=== PATIENT | female | born 1985 | race Caucasian/White ===

== ENCOUNTER 2018-08-20 22:54 | Emergency (ER) | payer OTHER ==
[2018-08-21 02:04] LABS: ADD MAN DIFF? NO
[2018-08-21 02:05] LABS: BASOPHILS % 0.3 % (0.0-2.0); EOSINOPHILS # 0.1 10^3/ul (0.0-0.5); EOSINOPHILS % 1.6 % (0.0-7.0); HEMATOCRIT 36.9 % (37.0-47.0); HEMOGLOBIN 12.2 g/dl (12.0-16.0); LYMPHOCYTES # 1.8 10^3/ul (0.8-2.9); MEAN CORPUSCULAR HGB CONC 33.1 g/dl (32.0-37.0); MEAN CORPUSCULAR VOLUME 93.7 fl (82.0-101.0); MEAN PLATELET VOLUME 9.4 fl (7.4-10.4); MONOCYTE # 0.5 10^3/ul (0.3-0.9); MONOCYTES % 5.2 % (0.0-11.0); NEUTROPHIL # 6.2 10^3/ul (1.6-7.5); NEUTROPHILS % 71.7 % (39.0-77.0); PLATELET COUNT 337 10^3/UL (140-415); RED BLOOD COUNT 3.94 10^6/ul (4.20-5.40); RED CELL DISTRIBUTION WIDTH 11.9 % (11.5-14.5)
[2018-08-21 02:05] LABS: WHITE BLOOD COUNT 8.7 10^3/ul (4.8-10.8)
[2018-08-21 03:20] LABS: ADD UMIC YES; UR ASCORBIC ACID NEGATIVE (NEGATIVE); UR BACTERIA FEW /HPF (NONE SEEN); UR BILIRUBIN (Dip) NEGATIVE (NEGATIVE); UR BLOOD (Dip) 3+ mg/dL (NEGATIVE); UR CLARITY SLIGHTLY CLOUDY (CLEAR); UR COLOR YELLOW (YELLOW); UR GLUCOSE (Dip) NEGATIVE (NEGATIVE); UR KETONES (Dip) NEGATIVE (NEGATIVE); UR LEUKOCYTE ESTERASE (Dip) NEGATIVE Leu/ul (NEGATIVE); UR MUCUS FEW /HPF (NONE SEEN); UR NITRITE (Dip) NEGATIVE (NEGATIVE); UR RBC 150 /HPF (0-5); UR SPECIFIC GRAVITY (Dip) 1.023 (1.003-1.030); UR SQUAMOUS EPITHELIAL CELL FEW /HPF (FEW); UR TOTAL PROTEIN (Dip) NEGATIVE (NEGATIVE); UR UROBILINOGEN (Dip) NEGATIVE (NEGATIVE); UR WBC 1 /HPF (0-5)
== END 2018-08-21 04:10 | disposition home or self-care (01) ==
LOC: FTE 22:54
DX: O20.9 Hemorrhage in early pregnancy, unspecified (principal); Z3A.12 12 weeks gestation of pregnancy
CPT/HCPCS: 36415; 76801; 81001; 84702; 85025; 86900; 86901; 99284-25

== ENCOUNTER 2019-02-24 07:50 | Inpatient (IN) | payer OTHER ==
[2019-02-24] MEDS: LACTATED RINGER'S 1,000 ML IV ×3 (06:23→17:28)
[2019-02-24] MEDS ORDERED: METHYLERGONOVINE 0.2 MG INJ IM ×2 (09:00→17:30)
[2019-02-24] MEDS ORDERED: OXYTOCIN 30 UNITS/LR 500 ML IV ×2 (09:00→17:30)
[2019-02-24] MEDS ORDERED: MISOPROSTOL 200 MCG TAB PR ×2 (09:00→17:30)
[2019-02-24] MEDS ORDERED: CARBOPROST 250 MCG INJ IM ×2 (09:00→17:30)
[2019-02-24 09:21] LABS: ADD MAN DIFF? NO
[2019-02-24 09:24] LABS: BASOPHILS % 0.4 % (0.0-2.0); EOSINOPHILS # 0.1 10^3/ul (0.0-0.5); EOSINOPHILS % 1.1 % (0.0-7.0); HEMATOCRIT 33.4 % (37.0-47.0); LYMPHOCYTES # 1.4 10^3/ul (0.8-2.9); LYMPHOCYTES % 15.7 % (15.0-51.0); MEAN CORPUSCULAR HEMOGLOBIN 29.3 pg (29.0-33.0); MEAN CORPUSCULAR HGB CONC 32.9 g/dl (32.0-37.0); MEAN CORPUSCULAR VOLUME 89.1 fl (82.0-101.0); MEAN PLATELET VOLUME 9.4 fl (7.4-10.4); MONOCYTE # 0.4 10^3/ul (0.3-0.9); MONOCYTES % 4.2 % (0.0-11.0); NEUTROPHILS % 78.2 % (39.0-77.0); PLATELET COUNT 289 10^3/UL (140-415); RED BLOOD COUNT 3.75 10^6/ul (4.20-5.40); RED CELL DISTRIBUTION WIDTH 13.5 % (11.5-14.5)
[2019-02-24 09:54] LABS: INR 0.95; PROTIME 12.8 Sec (11.9-14.9)
[2019-02-24 09:55] LABS: PARTIAL THROMBOPLASTIN TIME 29.7 Sec (23.0-35.0)
[2019-02-24 13:10] LABS: HEPATITIS B SURFACE ANTIGEN NEGATIVE (NEGATIVE)
[2019-02-24] MEDS ORDERED: morphine SULFATE/PF (10 MG/10 ML) INJ (13:10)
[2019-02-24] MEDS ORDERED: FENTAnyl 50 MCG/ML VIAL (13:10)
[2019-02-24] MEDS: CEFAZOLIN 3 GM in DEXTROSE 5% 100 ML IV (13:15)
[2019-02-24] MEDS ORDERED: DEXAMETHASONE 4 MG/ML 1 ML INJ (13:23)
[2019-02-24] MEDS ORDERED: ONDANSETRON 4 MG INJ (13:23)
[2019-02-24] MEDS ORDERED: FAMOTIDINE 20 MG INJ (13:24)
[2019-02-24] MEDS ORDERED: MIDAZOLAM 1 MG/ML 2 ML INJ (13:36)
[2019-02-24] MEDS ORDERED: DIPHENHYDRAMINE 50 MG INJ (13:54)
[2019-02-24] MEDS: OXYTOCIN 30 UNITS/LR 500 ML IV ×2 (14:10→18:48)
[2019-02-24] MEDS ORDERED: NACL 0.9% 3 ML SYG IV (17:30)
[2019-02-24] MEDS ORDERED: ONDANSETRON 4 MG INJ IV (18:00)
[2019-02-24] MEDS ORDERED: ZOLPIDEM 5 MG TAB PO (18:00)
[2019-02-24] MEDS ORDERED: KETOROLAC 30 MG INJ IV (18:00)
[2019-02-24] MEDS ORDERED: NALOXONE (0.4 MG/ML) INJ IV (18:00)
[2019-02-24] MEDS ORDERED: DIPHENHYDRAMINE 50 MG INJ IV (18:00)
[2019-02-24] MEDS ORDERED: HYDROmorphONE 0.5 MG/0.5 ML SYG IV ×2 (18:00)
[2019-02-24] MEDS: IBUPROFEN 800 MG TAB PO (22:05)
[2019-02-24] MEDS: LANOLIN HPA 1 PKT TOP (22:05)
[2019-02-24 22:28] LABS: RAPID PLASMA REAGIN NONREACTIVE (NR)
[2019-02-25] MEDS: IBUPROFEN 800 MG TAB PO ×3 (06:24→22:00)
[2019-02-25 08:28] LABS: ADD MAN DIFF? NO
[2019-02-25 08:37] LABS: BASOPHIL # 0.1 10^3/ul (0.0-0.1); BASOPHILS % 0.4 % (0.0-2.0); EOSINOPHILS % 0.3 % (0.0-7.0); HEMATOCRIT 30.6 % (37.0-47.0); HEMOGLOBIN 10.1 g/dl (12.0-16.0); LYMPHOCYTES % 15.3 % (15.0-51.0); MEAN CORPUSCULAR HEMOGLOBIN 29.9 pg (29.0-33.0); MEAN CORPUSCULAR VOLUME 90.5 fl (82.0-101.0); MEAN PLATELET VOLUME 9.8 fl (7.4-10.4); MONOCYTE # 0.6 10^3/ul (0.3-0.9); MONOCYTES % 4.7 % (0.0-11.0); NEUTROPHIL # 10.4 10^3/ul (1.6-7.5); NEUTROPHILS % 78.9 % (39.0-77.0); PLATELET COUNT 269 10^3/UL (140-415); RED BLOOD COUNT 3.38 10^6/ul (4.20-5.40); RED CELL DISTRIBUTION WIDTH 13.6 % (11.5-14.5)
[2019-02-25 08:37] LABS: WHITE BLOOD COUNT 13.1 10^3/ul (4.8-10.8)
[2019-02-25] MEDS: SENNA/DOCUSATE NA (8.6MG/50MG) TAB PO ×2 (09:29→20:43)
[2019-02-25] MEDS: MEASLES,MUMPS,RUBELLA VACCINE INJ SC* (09:31)
[2019-02-25] MEDS: HYDROCODONE/APAP (5/325) TAB PO ×2 (15:19→20:48)
[2019-02-26] MEDS: HYDROCODONE/APAP (5/325) TAB PO ×3 (04:17→21:05)
[2019-02-26] MEDS: IBUPROFEN 800 MG TAB PO ×3 (06:15→22:00)
[2019-02-26] MEDS: SENNA/DOCUSATE NA (8.6MG/50MG) TAB PO ×2 (08:35→21:00)
[2019-02-26] MEDS: NA PHOSPHATE/BIPHOS 133 ML ENEMA PR (09:34)
[2019-02-26] MEDS: LANOLIN HPA 1 PKT TOP (20:59)
[2019-02-27] MEDS: IBUPROFEN 800 MG TAB PO (05:31)
[2019-02-27] MEDS: DIPHTH/TET/ACEL PERTUSS (ADULT) 0.5 ML VIAL IM* (08:09)
[2019-02-27] MEDS: SENNA/DOCUSATE NA (8.6MG/50MG) TAB PO (08:23)
[2019-02-27] MEDS: HYDROCODONE/APAP (5/325) TAB PO (08:24)
[2019-02-27] MEDS ORDERED: MEASLES,MUMPS,RUBELLA VACCINE INJ SC* (09:00)
== END 2019-02-27 09:40 | disposition home or self-care (01) | DRG 785 ==
LOC: L-D 07:50 → PP1 16:25
PROVIDERS: Obstetrics & Gynecology
PROC: 10D00Z1 Extraction of Products of Conception, Low, Open Approach (ICD-10-PCS; principal; 2019-02-24 15:30)
PROC: 0UB70ZZ Excision of Bilateral Fallopian Tubes, Open Approach (ICD-10-PCS; 2019-02-24 15:30)
DX: O34.211 Maternal care for low transverse scar from previous cesarean delivery (principal); O99.214 Obesity complicating childbirth; E66.01 Morbid (severe) obesity due to excess calories; Z30.2 Encounter for sterilization; Z37.0 Single live birth; Z3A.39 39 weeks gestation of pregnancy
CPT/HCPCS: 85025; 85610; 85730; 86592; 86850; 86900; 86901; 87340; 88302; 90715; 99464